=== PATIENT | female | born 1955 | race Hispanic/Latino ===

== ENCOUNTER → 2024-01-22 | Emergency (ER) | payer OTHER ==
[~2024-01-22] MED LIST: KETOROLAC 30 MG/ML INJ ONE; NA CHLORIDE 0.9% 1,000 ML ONE; TAMSULOSIN 0.4 MG SR CAP ONE
--- OUTSIDE RECORDS SUMMARY | 2024-01-22 21:38 | XMS REPORT | Continuity of Care Document ---
Author Name Unknown Address [address] [place] [address] thconnect Address [address] [place] [address] [address] [place] [address] Care Team Providers Care Chief Inspector Name Role Phone [email or web address]_S Attending Clinician Unavaila ble [email or web address]_S Admitting Clinician Unavaila ble Payers Payer Name Policy Type Policy Number Effective Date Expirati on Date Source [facility] (MEDICARE REPLACEMENT HMO) [id number] Encounters Start Date/Time End Date/Time Encounter Type Admission Type Attending Clinicians Care Facility Care Department Encounter ID Source 2024-01-13 00:00:00 2024-01-13 00:00:00 Outpatient [email or web address]_Ka diyala_S PRIV PRIV [id number] [facility] 2023-09-25 00:00:00 2023-09-25 00:00:00 Outpatient [email or web address] diyala_S PRIV PRIV [id number] [facility]
[2024-01-22 22:16] LABS: Absolute Lymphocytes (CBC) 2.3 K/uL (0.7-4.9); Hematocrit 42.9 % (36.0-45.0); Lymphocytes % 26.7 % (15.3-44.8); MCV 87.7 fL (80-100); MPV 9.2 fL (7.6-11.3); Platelets 258 thou/uL (152-406); RBC Red Blood Cell Count 4.89 M/uL (3.86-4.86)
[2024-01-22 22:22] LABS: Specific Gravity > 1.030 (1.005-1.030); Urine Bacteria <20 /HPF (<20); Urine Bilirubin NEGATIVE (Negative); Urine Blood Trace (Negative); Urine Clarity Clear (Clear); Urine Color Light-Yellow (Yellow); Urine Glucose 4+ (Over) (Negative); Urine Mucus Slight /HPF (None Seen); Urine Protein NEGATIVE (Negative); Urine Urobilinogen Normal (Normal); Urine pH 5.5 (5.0-7.0)
[2024-01-22 22:40] LABS: Albumin 3.8 g/dL (3.4-5.0); Bilirubin Total 0.3 mg/dL (0.2-1.0); Potassium 3.8 mEq/L (3.5-5.1); Protein, Total 7.1 g/dL (6.4-8.2)
--- NOTE | 2024-01-22 23:48 | ER ---
Nurse's Notes [facility] Name: Vee Coker Age: 68 yrs Sex: Female : 1955 Arrival Date: 01/22/2024 Time: 21:36 Bed 6 Private MD: Diagnosis: Calculus of kidney with calculus of ureter Presentation: 01/22 21:43 Chief complaint: Patient states: severe lower abdominal pain, felt like contractions or vc1 spasms. Ebola Screen: Patient negative for fever greater than or equal to 101.5 degrees Fahrenheit, and additional compatible Ebola Virus Disease symptoms Patient denies exposure to infectious person. Patient denies travel to an Ebola-affected area in the 21 days before illness onset. No symptoms or risks identified at this time. Risk Assessment: Do you want to hurt yourself or someone else? Patient reports no desire to harm self or others. Onset of symptoms is unknown. 21:43 Method Of Arrival: Ambulatory vc1 21:43 Acuity: JEROME 3 vc1 21:48 Coronavirus screen: Vaccine status: Patient reports receiving the 2nd dose of the covid vc1 vaccine. At this time, the client does not indicate any symptoms associated with coronavirus-19. Initial Sepsis Screen: Does the patient meet any 2 criteria? No. Patient's initial sepsis screen is negative. Does the patient have a suspected source of infection? No. Patient's initial sepsis screen is negative. Triage Assessment: 21:47 General: Appears in no apparent distress. uncomfortable, Behavior is calm, cooperative, vc1 appropriate for age. Pain: Denies pain. EENT: No deficits noted. No signs and/or symptoms were reported regarding the EENT system. Neuro: Level of Consciousness is awake, alert, obeys commands, Oriented to person, place, time, situation, Appropriate for age. Cardiovascular: No deficits noted. Respiratory: Airway is patent Respiratory effort is even, unlabored, Respiratory pattern is regular, symmetrical. GI: Abdomen is round non-distended, Reports severe left lower abdominal pain that has resolved. Patient currently denies diarrhea, vomiting. : No deficits noted. No signs and/or symptoms were reported regarding the genitourinary system. Derm: No deficits noted. No signs and/or symptoms reported regarding the dermatologic system. Musculoskeletal: No deficits noted. No signs and/or symptoms reported regarding the musculoskeletal system. Historical: - Allergies: 21:51 Codeine (Vomiting); vc1 21:51 PENICILLINS (Anaphylaxis, Hives); vc1 - PMHx: 21:44 Diabetes mellitus; vc1 21:51 Hypercholesterolemia; Hypertensive disorder; high intraoccular pressure; vc1 - PSHx: 21:51 None; vc1 - Immunization history:: Client reports receiving the 2nd dose of the Covid vaccine. - Social history:: Smoking status: Patient denies any tobacco usage or history of. Screenin:53 [facility] ED Fall Risk Assessment (Adult) History of falling in the last 3 months, vc1 including since admission No falls in past 3 months (0 pts) Confusion or Disorientation No (0 pts) Intoxicated or Sedated No (0 pts) Impaired Gait No (0 pts) Mobility Assist Device Used No (0 pt) Altered Elimination No (0 pt) Score/Fall Risk Level 0 - 2 = Low Risk Oriented to surroundings, Maintained a safe environment, Educated pt \T\ family on fall prevention, incl call for assistance when getting out of bed. Abuse screen: Denies threats or abuse. Nutritional screening: No deficits noted. Tuberculosis screening: No symptoms or risk factors identified. Assessment: 22:00 Reassessment: SEE TRIAGE NOTE. bp 22:30 GI: Bowel sounds present X 4 quads. Abd is soft and non tender X 4 quads. tm6 00:23 Reassessment: Patient appears in no apparent distress at this time. Patient and/or tm6 family updated on plan of care and expected duration. Pain level reassessed. Patient is alert, oriented x 3, equal unlabored respirations, skin warm/dry/pink. Patient states feeling better. Vital Signs: 01/22 21:48 BP 138 / 73; Pulse 76; Resp 14; Temp 97.3; Pulse Ox 99% ; Weight 68.04 kg; Height 5 ft. vc1 5 in. ; Pain 0/10; 22:48 BP 177 / 78; Pulse 74; Resp 16; Pulse Ox 99% ; bp 00:23 BP 154 / 64; Pulse 79; Resp 18; Temp 97.3(TE); Pulse Ox 99% on R/A; Pain 0/10; tm6 01/22 21:48 Body Mass Index 24.96 (68.04 kg, 165.1 cm) vc1 01/22 21:48 Pain Scale: Adult vc1 00:23 Pain Scale: Adult tm6 ED Course: 01/22 21:40 Patient arrived in ED. jj6 21:41 Monet Gleason [facility]-C [facility] kb 21:42 Brian Kirby MD is Attending Physician. kb 21:44 Triage completed. vc1 21:46 Arm band placed on right wrist. vc1 22:00 Inserted saline lock: 20 gauge in right antecubital area, using aseptic technique. bp Blood collected. 22:32 Leonel Ervin, RN is Primary Nurse. bp 22:49 Patient has correct armband on for positive identification. bp 22:[address] via wheelchair. nj 23:02 CT completed. Patient tolerated procedure well. nj 23:06 Patient moved back from CT. nj 23:09 CT Abd/Pelvis - IV Contrast Only In Process Unspecified. EDMS 00:23 No provider procedures requiring assistance completed. IV discontinued, intact, tm6 bleeding controlled, No redness/swelling at site. Pressure dressing applied. 00:24 Provided Education on: medication usage. tm6 Administered Medications: 01/22 22:45 Drug: NS 0.9% IV 1000 ml IV at 1000 ml once Route: IV; Rate: 1000 ml; Site: right bp antecubital; 00:25 Follow up: Response: No adverse reaction; IV Status: Completed infusion; IV Intake: tm6 1000ml 01/22 23:57 Drug: Flomax PO 0.4 mg PO once Route: PO; bp 23:57 Drug: Ketorolac IVP 15 mg IVP once Route: IVP; Site: right antecubital; bp Medication: 00:24 VIS not applicable for this client. tm6 Intake: 00:25 IV: 1000ml; Total: 1000ml. tm6 Outcome: 01/22 23:47 Discharge ordered by . kb 00:24 Discharged to home ambulatory, with family, tm6 Condition: stable Discharge instructions given to patient, family, Instructed on discharge instructions, follow up and referral plans. medication usage, Demonstrated understanding of instructions, follow-up care, medications, Prescriptions given X 3, 00:24 Patient left the ED. tm6 Signatures: Dispatcher [employer] EDCA Monet Gleason FNP-C VALIDATION MANAGER-CkCharbel Lopez Brian, GINA RN bp Tyesha Singh jj6 Karley Rico RN RN vc1 Fátima Argueta RN RN tm6 Corrections: (The following items were deleted from the chart) 01/22 21:52 21:44 Allergies: No Known Allergies; [place] [id number] 23:08 Patient moved to [facility] 23:08 CT completed. Patient tolerated procedure well [facility] 23:08 Patient moved back from [place]. [facility]
--- NOTE | 2024-01-22 23:48 | EDPHYS ---
Physician Documentation [facility] Name: Vee Coker Age: 68 yrs Sex: Female : 1955 Arrival Date: 01/22/2024 Time: 21:36 Bed 6 Private MD: ED Physician Brian Kirby HPI: 01/22 22:50 This 68 yrs old Female presents to ER via Ambulatory with complaints of kb Abdominal Pain. 22:50 Patient is a 68-year-old female who presents for left lower quadrant pain that started kb at 730 this evening. States she had similar pain on December 26 and mild pain intermittent throughout the month. States she has been seen by her phlebotomist supervisor/instructor and was told it could be a medication that she had been put on so that was stopped but the pain came back tonight so she came to have it evaluated. States the pain did resolve on the walk from the car to the ER.. Historical: - Allergies: 21:51 Codeine (Vomiting); vc1 21:51 PENICILLINS (Anaphylaxis, Hives); vc1 - PMHx: 21:44 Diabetes mellitus; vc1 21:51 Hypercholesterolemia; Hypertensive disorder; high intraoccular pressure; vc1 - PSHx: 21:51 None; vc1 - Immunization history:: Client reports receiving the 2nd dose of the Covid vaccine. - Social history:: Smoking status: Patient denies any tobacco usage or history of. ROS: 22:51 Constitutional: Negative for fever, chills, and weight loss, kb 22:51 Abdomen/GI: Positive for diarrhea, Negative for abdominal pain, nausea and vomiting, 22:51 All other systems are negative, Exam: 22:51 Constitutional: This is a well developed, well nourished patient who is awake, alert, kb and in no acute distress. Head/Face: Normocephalic, atraumatic. ENT: Moist Mucous membranes Cardiovascular: Regular rate Respiratory: Respirations even and unlabored. No increased work of breathing. Talking in full sentences Abdomen/GI: Soft, non-tender. No distention Skin: Warm, dry with normal turgor. Normal color. MS/ Extremity: Pulses equal, no cyanosis. Neurovascular intact. Full, normal range of motion. Neuro: Awake and alert, GCS 15, oriented to person, place, time, and situation. Moves all extremities. Normal gait. Vital Signs: 21:48 BP 138 / 73; Pulse 76; Resp 14; Temp 97.3; Pulse Ox 99% ; Weight 68.04 kg; Height 5 ft. vc1 5 in. ; Pain 0/10; 22:48 BP 177 / 78; Pulse 74; Resp 16; Pulse Ox 99% ; bp 00:23 BP 154 / 64; Pulse 79; Resp 18; Temp 97.3(TE); Pulse Ox 99% on R/A; Pain 0/10; tm6 01/22 21:48 Body Mass Index 24.96 (68.04 kg, 165.1 cm) vc1 01/22 21:48 Pain Scale: Adult vc1 00:23 Pain Scale: Adult tm6 MDM: 01/22 21:42 Patient medically screened. kb 22:52 Differential diagnosis: diverticulitis, non-specific abd pain, urinary tract infection. kb Data reviewed: vital signs, nurses notes. 23:46 Counseling: I had a detailed discussion with the patient and/or guardian regarding the kb historical points, exam findings, and any diagnostic results supporting the discharge/admit diagnosis, lab results, radiology results, the need for outpatient follow up, a urologist, to return to the emergency department if symptoms worsen or persist or if there are any questions or concerns that arise at home. 01/22 21:50 Order name: CBC with Diff; Complete Time: 22:22 kb 01/22 21:50 Order name: CMP; Complete Time: 22:49 kb 01/22 21:50 Order name: Lipase; Complete Time: 22:49 kb 01/22 21:50 Order name: Urinalysis w/ reflexes; Complete Time: 22:30 kb 01/22 22:28 Order name: Urine Culture EDVT 01/22 21:50 Order name: CT Abd/Pelvis - IV Contrast Only kb 01/22 21:50 Order name: IV Saline Lock; Complete Time: 22:30 kb 01/22 21:50 Order name: Labs collected and sent; Complete Time: 22:29 kb Administered Medications: 22:45 Drug: NS 0.9% IV 1000 ml IV at 1000 ml once Route: IV; Rate: 1000 ml; Site: right bp antecubital; 00:25 Follow up: Response: No adverse reaction; IV Status: Completed infusion; IV Intake: tm6 1000ml 01/22 23:57 Drug: Flomax PO 0.4 mg PO once Route: PO; bp 23:57 Drug: Ketorolac IVP 15 mg IVP once Route: IVP; Site: right antecubital; bp Disposition: 23:55 Co-signature as Attending Physician, Brian Kirby MD I agree with the assessment sp4 and plan of care. I reviewed the patient's care provided by the Advanced Practice Provider and agree with the diagnosis and treatment plan. Disposition Summary: 01/22/24 23:47 Discharge Ordered Notes: Location: Home kb Condition: Stable kb Diagnosis - Calculus of kidney with calculus of ureter kb Followup: kb - With: Emergency Department - When: As needed - Reason: Worsening of condition Followup: kb - With: Private Physician - When: 2 - 3 days - Reason: Recheck today's complaints, Continuance of care, Re-evaluation by your physician Discharge Instructions: - Discharge Summary Sheet kb - Kidney Stones, [id number] kb - Dietary Guidelines to Help Prevent Kidney Stones kb Forms: - Medication Reconciliation Form kb - Thank You Letter kb - Antibiotic Education kb - Prescription Opioid Use kb - Patient Portal Instructions kb - Leadership Thank You Letter kb Prescriptions: - Flomax 0.4 mg Oral capsule - take 1 capsule ORAL route once daily; 10 capsule; Refills: 0, Product Selection kb Permitted - Diclofenac Sodium 75 mg Oral tablet, delayed release (enteric coated) - take 1 tablet ORAL route 2 times per day As needed; 30 tablet; Refills: 0, kb Product Selection Permitted - Macrobid 100 mg Oral Capsule - take 1 capsule ORAL route every 12 hours for 7 days; 14 capsule; Refills: 0, kb Product Selection Permitted Signatures: Dispatcher [employer] EDVT Monet Gleason, GIOVANIC Leonel Woo RN RN bp Karley Rico RN RN 1 Brian Kirby MD MD sp4 Fátima Argueta RN tm6 Corrections: (The following items were deleted from the chart) 21:52 21:44 Allergies: No Known Allergies; vc1 vc1
[2024-01-23 00:53] VITALS: BP 154/64; TEMP 97.3; O2SAT 99
--- NOTE | 2024-01-23 12:00 | RAD REPORT ---
EXAM DESCRIPTION: CT - Abdomen Pelvis W Contrast - 01/23/2024 6:31 am CLINICAL HISTORY: LOWER ABD PAIN. COMPARISON: None. TECHNIQUE: CT of the abdomen and pelvis was performed following intravenous administration of iodina royce contrast. Oral contrast was not administered. Axial, coronal, and sagittal soft tissue window rec onstructions were created and sent to PACS. This exam was performed according to our departmental dose-optimization program, which includes autom ated exposure control, adjustment of the mA and/or kV according to patient size and/or use of iterati ve reconstruction technique. FINDINGS: Thoracic: No significant abnormality. Hepatobiliary: No concerning hepatic lesion identified. The portal veins are patent. The gallbladder is unremarkable. No biliary ductal dilatation. Pancreas: Unremarkable. Spleen: Unremarkable. Gastrointestinal: No evidence of bowel obstruction or perienteric inflammation. The appendix is nonvi sualized. Small stool burden. Adrenals: No abnormality identified in either adrenal gland. Renal: There is a calculus in the mid left ureter which measures 0.5 cm. There is mild left-sided hyd roureteronephrosis and mild left perinephric fat stranding. There is also mild prominence of the left ureter distal to the calculus. No definite renal calculi are visualized bilaterally. No hydronephros is on the right. No concerning parenchymal abnormality in either kidney. No hydronephrosis or urolith iasis. Bladder/Reproductive: Unremarkable appearance of the urinary bladder by CT technique. Vascular/Lymphatics: No lymphadenopathy identified by CT size criteria. Abdominal aorta is normal in caliber. Moderate calcific atherosclerosis. Musculoskeletal: No concerning osseous lesion identified. Fluid / peritoneum: No significant free fluid. No free intraperitoneal air identified. IMPRESSION Mid left ureteral calculus with mild left hydronephrosis. Electronically signed by: Pema Lion MD 01/22/2024 11:17 PM DIGITAL MANAGER Due to temporary technical issues with the PACS/Fluency reporting system, reports are being signed by the in house radiologist without review as a courtesy to ensure prompt reporting. The interpreting r adiologist is fully responsible for the content of the report.
== END ==
LOC: ER 21:36
DX: N20.2 Calculus of kidney with calculus of ureter (principal); E11.9 Type 2 diabetes mellitus without complications; I10 Essential (primary) hypertension; Z88.0 Allergy status to penicillin; Z88.5 Allergy status to narcotic agent
CPT/HCPCS: 87088; 85025; 81001; 87086; 36415; 83690; 80053; 74177; Q9967; J7030

== ENCOUNTER 2024-03-17 06:16 | Day surgery (SDC) | payer OTHER ==
[2024-03-17] MEDS: NA CHLORIDE 0.9% 1,000 ML ONE (06:50)
[2024-03-17] MEDS ORDERED: propofoL 200 MG/20 ML VIAL IV ONE (07:13)
[2024-03-17] MEDS ORDERED: ONDANSETRON 4 MG/2 ML VIAL ONE (07:13)
[2024-03-17] MEDS ORDERED: FENTANYL CITR 100 MCG/2 ML ONE (07:14)
[2024-03-17] MEDS ORDERED: MIDAZOLAM HCL 2 MG/2 ML INJ ONE (07:14)
[2024-03-17] MEDS: CEFAZOLIN SODIUM 1 GM/VIAL ONE (07:23)
[2024-03-17] MEDS ORDERED: LIDOCAINE 2% MPF 5 ML VIAL ONE (07:26)
[2024-03-17] MEDS ORDERED: SUCCINYLCHOLINE 20 MG/ML (10 ML) IV ONE (07:26)
[2024-03-17] MEDS ORDERED: CODEINE 30MG/APAP 300MG TAB PO PRN (07:43)
[2024-03-17] MEDS ORDERED: PHENAZOPYRIDINE 100MG TAB PO ONE (09:21)
[2024-03-17] MEDS ORDERED: TRAMADOL 37.5mg/APAP 325mg PER TAB ONE (09:26)
[2024-03-17] MEDS: TRAMADOL 37.5mg/APAP 325mg PER TAB PO ONE (09:30)
[2024-03-17] MEDS: PHENAZOPYRIDINE 100MG TAB PO ONE (09:30)
[2024-03-17 11:49] VITALS: BP 148/70; TEMP 97; O2SAT 98
--- NOTE | 2024-03-17 15:20 | RAD REPORT ---
EXAM DESCRIPTION: RAD - Urethrocystogrphy Retrograde - 03/17/2024 2:34 pm CLINICAL HISTORY: ICD N 20.0 FINDINGS: 15 fluoroscopic spot images obtained. Fluoroscopy time 1.3 minutes Left ureter was cannulated and contrast administered. Subsequently an ureteral stent was placed. Exam ination was performed by Dr Calhoun
--- NOTE | 2024-03-17 16:11 | OP ---
Surgeon: ROBIN MENDEZ Preoperative Diagnoses: 1.Left ureterolithiasis. 2.Left flank pain. Postoperative Diagnoses: 1.Left ureterolithiasis. 2.Left flank pain. 3.High-grade obstruction at junction L4-L5. Principal Procedures: 1.Cystoscopy. 2.Left retrograde pyelography. 3.Complex left ureteral stent placement. Indication For Procedure: The patient was seen in the outpatient urology clinic last week with sever e left flank pain associated with a 5 mm mid distal ureteral calculus causing hydronephrosis. Becaus e of the severity of her pain, she was recommended for operative intervention and presents today for that. Procedure In Detail: The patient was consented in the preoperative holding area before being transfe rred to the operative suite where general anesthesia was induced. She was given Ancef as IV antimicr obial prophylaxis, and pneumo boots were provided for DVT prophylaxis. She was placed in the lithoto my position, padded and secured to the table appropriately, and her genitalia were prepped with Hibic lens before being draped in a standard fashion. The case was begun using a 22-[place] rigid cystoscop e to traverse the urethra and into the bladder. The bladder was decompressed of urine and then refil led with sterile saline and surveyed. There was evidence of some mild cystitis present throughout. The ureteral orifices were orthotopic in location and no papillary mucosal lesions, foreign bodies, o r stones were noted, otherwise. As a result, I cannulated the left ureteral orifice with a 5-Central African ureteral access catheter and performed a retrograde pyelogram. Left retrograde pyelography: Using a 70:30 mixture of Omnipaque and saline, contrast was injected vi a the lumen of the 5-Central African ureteral access catheter and did propagate into the mid distal ureter whe re it reached a point of termination and would not go any further. I thus advanced the 5-Central African uret eral access catheter further into the mid distal ureter near the point of obstruction and again injec royce full-strength contrast. At this time, with the contrast went beyond the point of obstruction and into the proximal ureter where there was significant ureteronephrosis, before it entered the renal p nasrin and calyces, which were sharp at this point without signs of pelvocaliectasis. I thus attempte d to pass a Sensor wire via the 5-Central African ureteral access catheter, but it would coil beneath the poin t of obstruction observed in the mid distal ureter at the junction of the body of L4 and L5. As a re sult, after multiple attempts with a Sensor wire, I switched to a glidewire which again would simply coil beneath the stone. I continued with the glidewire for a couple of additional attempts before fi stephenie I was able to get the wire to navigate beyond the point of obstruction and enter the proximal u reter and ultimately the renal pelvis and upper pole calyx as evidenced fluoroscopically. Over the w emiliana, I was then able to pass a 5-Central African ureteral access catheter with some resistance into the proxim al ureter. I then exchanged the glidewire for the Sensor wire and after leaving the 5-Central African cathete r in place for a few minutes to allow the ureter to hopefully dilate a bit, I then removed the 5-Fren ch ureteral access catheter and then placed a 4.8-Central African x 26 cm double-J ureteral stent over the Sen sor wire into the collecting system, coiling it within the upper pole with a coil formed cystoscopica lly visible within the bladder. I then decompressed her bladder of fluid and urine before removing t he cystoscope and took the patient out of the lithotomy position. She was then awakened from general anesthesia, transferred to a stretcher, and then transferred to the recovery room in good condition. Complications: None. Discharge Disposition: She will require at least a couple of weeks of ureteral dilation with this 4. 5-Central African stent before we will plan to return for definitive operative management of her obstructive u reterolithiasis. Given the degree of obstruction seen, she will be counseled that she may be at a higher risk of ureteral stricture formation. NOAH/JOSEL Voice ID: [id number] Report ID: [id number]
== END 2024-03-17 10:13 | disposition home or self-care (01) ==
LOC: OR 06:16
PROVIDERS: ATTEND Urology
PROC: 0T778DZ Dilation of Left Ureter with Intraluminal Device, Via Natural or Artificial Opening Endoscopic (ICD-10-PCS; principal; 2024-03-17 07:30)
DX: N20.1 Calculus of ureter (principal); R10.9 Unspecified abdominal pain
CPT/HCPCS: 93005; 87088; 87086; 82947 ×2; 74450; 51610; 52332; J2704; J2001; J2250; J3010; J2405; J7030; J0690

== ENCOUNTER 2024-05-05 10:23 | Day surgery (SDC) | payer OTHER ==
--- NOTE | 2024-04-23 13:10 | RAD REPORT ---
EXAM DESCRIPTION: RAD - Chest Pa And Lat (2 Views) - 04/23/2024 1:04 pm CLINICAL HISTORY: Pre op pending surgery Chest pain. COMPARISON: <Comparisons> FINDINGS: The lungs are clear. The heart is normal in size. No displaced fractures. IMPRESSION: No acute or concerning finding suspected.
[2024-04-23 13:51] LABS: Absolute Basophils 0.1 K/uL (0-0.5); Absolute Eosinophils 0.3 K/uL (0-0.5); Absolute Lymphocytes (CBC) 1.7 K/uL (0.7-4.9); Absolute Monocytes 0.5 K/uL (0.1-1.3); Absolute Neutrophil 5.1 K/uL (1.8-8.0); Basophils % 0.8 % (0-1.3); Eosinophils % 4.2 % (0-4.4); Hematocrit 41.7 % (36.0-45.0); Hemoglobin 13.4 g/dL (12.0-15.0); Lymphocytes % 21.9 % (15.3-44.8); MCH 28.5 pg (27.0-35.0); MCHC 32.1 g/dL (32.0-36.0); MCV 88.5 fL (80-100); MPV 9.1 fL (7.6-11.3); Monocytes % 6.9 % (3.3-12.3); Neutrophils % 66.2 % (41.7-73.7); Platelets 351 thou/uL (152-406); RBC Red Blood Cell Count 4.71 M/uL (3.86-4.86); Red Cell Distribution Width 15.1 % (12.1-15.2)
[2024-04-23 13:52] LABS: PT Prothrombin Time 11.3 SECONDS (9.5-12.5); Protime INR 1.03
[2024-04-23 14:05] LABS: Anion Gap 5.8 mEq/L (5.0-15.0); Potassium 4.8 mEq/L (3.5-5.1)
[2024-05-05] MEDS: NA CHLORIDE 0.9% 1,000 ML ONE (10:58)
[2024-05-05] MEDS ORDERED: ONDANSETRON 4 MG/2 ML VIAL ONE (15:09)
[2024-05-05] MEDS ORDERED: propofoL 200 MG/20 ML VIAL IV ONE (15:09)
[2024-05-05] MEDS ORDERED: LIDOCAINE 1% MPF 5 ML VIAL ONE (15:09)
[2024-05-05] MEDS ORDERED: dexAMETHasone 10 MG/ML VIAL ONE (15:09)
[2024-05-05] MEDS ORDERED: MIDAZOLAM HCL 2 MG/2 ML INJ ONE (15:10)
[2024-05-05] MEDS ORDERED: FENTANYL CITR 100 MCG/2 ML ONE (15:10)
[2024-05-05] MEDS: CEFAZOLIN SODIUM 1 GM/VIAL ONE (15:50)
[2024-05-05] MEDS ORDERED: LABETALOL 20 MG/4ML SYRINGE IV ONE (16:31)
[2024-05-05] MEDS: TRAMADOL 37.5mg/APAP 325mg PER TAB ONE (17:48)
[2024-05-05] MEDS ORDERED: PHENAZOPYRIDINE 100MG TAB PO ONE (18:23)
[2024-05-05] MEDS: PHENAZOPYRIDINE 100MG TAB PO ONE (18:25)
[2024-05-05 18:40] VITALS: BP 149/63; TEMP 98.7; O2SAT 96
--- NOTE | 2024-05-05 20:47 | RAD REPORT ---
EXAM DESCRIPTION: RAD - Urethrocystogrphy Retrograde - 05/05/2024 4:53 pm CLINICAL HISTORY: LASER/ LEFT STENT EXCHANGE COMPARISON: None available. FINDINGS: Twelve Images were sent to PACS, documenting fluoroscopy use during left stent exchange pr marlon. No radiologist was available for the procedure, nor will any image interpretation he provide d. Please refer to the procedural report for additional details. Fluoroscopy time: 17 seconds. IMPRESSION: Documentation of fluoroscopy utilization as above.
--- NOTE | 2024-05-06 02:38 | OP ---
Surgeon: ROBIN MENDEZ Preoperative Diagnoses: 1.Left obstructive ureterolithiasis. 2.Stent discomfort. Postoperative Diagnoses: 1.Left obstructive ureterolithiasis. 2.Stent discomfort. 3.Calcified ureteral stricture disease at the junction of L4 L5/superior body of L5. Principal Procedures: 1.Cystoscopy. 2.Left retrograde pyelography. 3.Left ureteroscopy with laser lithotripsy. 4.Left ureteroscopic laser incision of calcified ureteral stricture. 5.Left ureteral dilatation. 6.Left 8-Eritrean ureteral stent placement. Indication For Procedure: Ms. Coker presented via the emergency department with severe flank pain a ssociated with a calcification noted within the mid distal ureter on the left. She underwent complic ated left ureteral stent placement requiring use of a 4.8-Eritrean stent due to the inability to pass a nything larger, and this was done with great difficulty. She presents today for definitive investiga tion and management of the calcification seen on CT. Of note, I reviewed the images of the CT and th e calcification seen, had a stippled appearance, atypical for a ureteral calculus. Procedure In Detail: The patient was consented in the preoperative holding area before being transfe rred to the operative suite where general anesthesia was induced. She was given Ancef 2 g IV antimic robial prophylaxis, and pneumo boots were provided for DVT prophylaxis. She was placed in the lithot meliton position, padded and secured to the table appropriately. Her genitalia were prepped with Hibicle ns and she was draped in standard fashion. The case was begun using a 22-Eritrean rigid cystoscope to traverse the urethra and into the bladder with ease. The bladder was decompressed of fluid and urine , and the ureteral stent was noted emanating from the left ureteral orifice. Using an alligator gras per, the tip of the stent was grasped and delivered to the meatus leaving the proximal end of the lucien nt within the proximal ureter/renal pelvis. I then passed a Sensor wire via the stent coiling it wit hin the putative upper pole calyx of the left kidney. Over the Sensor wire, I removed the stent and placed a dual-lumen catheter into the mid distal ureter. I then performed a retrograde study. Left retrograde pyelography: Using a 70:30 mixture of Omnipaque and saline, I injected the contrast via the second lumen of the dual-lumen catheter and it did propagate from the tip of the dual-lumen c atheter to a point of obstruction observed at the junction of the body of L4-L5 or the superior body of L5. The ureter was somewhat dilated above this junction as well as below this junction, contraste d into the renal pelvis and calyces with a degree of mild hydronephrosis. As a result, I removed the dual-lumen catheter leaving the Sensor wire in place and performed direct vision ureteroscopy. The ureteroscope was passed via her urethra into her bladder and into the ureteral orifice, traversin g the distal into the mid ureter to the point of obstruction observed fluoroscopically at the junctio n of the body of L4-5 where a calcified area of stricture disease was noted. It did appear that pote ntially a stone had embedded and was beneath the mucosa which had healed on top of the stone. This S ensor wire was going right through the center of the calcified area of stricture disease. As a resul t, I advanced the scope to this point of obstruction and utilized a 365 nm laser fiber at a power set ting of 0.8 joules and 15 hertz initially to begin to fragment some of the stone material seen most s uperficially beneath the mucosa within the ureter. I then had to increase the power to 1 joule and u ltimately to 25 hertz to continue to fragment that stone material from beneath the mucosa. I also al ternated with 0.4 joules and 25 hertz ultimately to ensure all calcified material and fragments were removed from beneath the mucosa at that point in the ureter. Unfortunately, the calcified material w as noted involving about 4/5 of the lumen of the ureter with the only uninvolved segment being a port ion of the ureter between 11 p.m. and 1 a.m. As a result, there was clear stricture disease that had formed, I proceeded to incise the stricture a t this point laterally because we were above the pelvic brim. As I incised the stricture disease lat erally until periureteral fat was noted and then after this was successfully managed, I then advanced the ureteroscope beyond the point of stricture and obstruction into the proximal ureter and ensured no additional calculi were noted visualizing into the renal pelvis. At this point, I removed the ure teroscope and then passed the dual-lumen catheter over the safety wire and again performed a retrogra de pyelogram. Left retrograde pyelography: Using full-strength Omnipaque, I injected this via the second lumen of the dual-lumen catheter and did demonstrate complete patency of the ureter beyond the point of obstru ction with no significant narrowing or tapering of the ureter in that location. A slight degree of u reteral extravasation was observed as expected and desired. As a result, I advanced the 10-Eritrean du al-lumen catheter further beyond the point of obstruction into the renal pelvis to ensure it was dila royce at least a 10-Eritrean. I then switched the dual-lumen catheter for a 12 x 14-Eritrean ureteral acce ss sheath to further dilate the incised strictured area to at least 14-Eritrean. Once this was done, I then removed that ureteral access sheath and back-loaded the cystoscope over the safety wire. I the n passed an 8-Eritrean x 26 cm double-J ureteral stent over the wire successfully coiling it within the upper pole calyx of the left kidney with an additional wire cystoscopically formed in her bladder. I then decompressed the bladder of fluid and urine and collected some of the laser in size material f or pathologic analysis and chemical analysis. The patient was then taken out of the lithotomy positi on, awakened from general anesthesia, transferred to a stretcher, and then transferred to the recover y room in good condition. Complications: None. Discharge Disposition: She will be discharged with a 14-day prescription for Levaquin in addition to a once daily prophylactic Macrobid prescription, which I instructed her to start taking after she co mpletes the 14 days of the Levaquin. She will contact her yarn packer to confirm whether her gla ucoma is in the open angle or closed angle, and if it is open angle and she has significant stent dis comfort, we can prescribe oxybutynin to manage that. I also took some pictures which were shared with her , and I allowed him to use his cellphone to snap pictures off my cellphone which were taken intraoperatively because the camera equipment was not adequately recording video. He did this. I explained the pictures including what was normal-lucio earing ureter versus the calcified submucosal portion of the ureter versus the after effect with the incised area of ureteral stricture disease. The patient should keep the ureteral stent for at least 6 to 8 weeks before it is removed in the office cystoscopically. Subsequent followup will be establi shed in about 2 to 3 months thereafter for ultrasound to assess for obstruction suggestive of recurre nce of the left ureteral stricture disease. WR/MODL Voice ID: [id number] Report ID: [id number]
== END 2024-05-05 18:33 | disposition home or self-care (01) ==
LOC: OR 10:23
PROVIDERS: ATTEND Urology
PROC: 0T778DZ Dilation of Left Ureter with Intraluminal Device, Via Natural or Artificial Opening Endoscopic (ICD-10-PCS; 2024-05-05)
PROC: 0TF78ZZ Fragmentation in Left Ureter, Via Natural or Artificial Opening Endoscopic (ICD-10-PCS; principal; 2024-05-05 12:00)
DX: N20.1 Calculus of ureter (principal); T83.84XA Pain due to genitourinary prosthetic devices, implants and grafts, initial encounter; N13.5 Crossing vessel and stricture of ureter without hydronephrosis
CPT/HCPCS: 52356; 52344; 87088; 85025; 87086; 80048; 36415; 85610; 82947 ×3; 88300; 82360; 71046; 74450; 51610; J2704; J2001; J2250; J3010; J1100; J2405; J7030; J0690

== ENCOUNTER 2025-09-23 17:14 | Emergency (ER) | payer OTHER ==
[2025-09-23] MEDS ORDERED: TENECTEPLASE 50 MG/10 ML VIAL IV ONE (17:38)
[2025-09-23 17:42] LABS: Absolute Lymphocytes (CBC) 2.8 K/uL (0.7-4.9); Hematocrit 41.6 % (36.0-45.0); Hemoglobin 13.8 g/dL (12.0-15.0); MCH 29.0 pg (27.0-35.0); MCHC 33.3 g/dL (32.0-36.0); MCV 87.2 fL (80-100); MPV 9.9 fL (7.6-11.3); Nucleated RBC Absolute Count 0.0 (0-0); Nucleated Red Blood Cells % 0.0 % (0-0); RBC Red Blood Cell Count 4.77 M/uL (3.86-4.86); White Blood Count 10.60 thou/uL (4.3-10.9)
--- NOTE | 2025-09-23 17:48 | RAD REPORT ---
EXAM: CT brain without contrast HISTORY: STROKE ALERT COMPARISON: 06/24/2008 TECHNIQUE: Multiple contiguous axial images were obtained and a CT of the brain without contrast. Sag ittal and coronal reformats were performed. One or more of the following dose reduction techniques were used: Automated exposure control, adjust ment of the mA and/or kV according to patient size, and/or iterative reconstruction. FINDINGS: No evidence of hydrocephalus, intracranial hemorrhage, or extra-axial fluid collection. The brain is normal in morphology. No evidence of midline shift or areas of brain edema. The calvarium is intact. The visualized paranasal sinuses and mastoid air cells are essentially clear . IMPRESSION: No evidence of acute intracranial abnormality. The findings were communicated with Jeffy Suggs at 09/23/2025 5:45 PM by telephone.
[2025-09-23 17:51] LABS: PT Prothrombin Time 11.6 SECONDS (10-13.0); PTT, Activated Partial Thromb 30.0 SECONDS (27.2-37.4); Protime INR 1.03
--- NOTE | 2025-09-23 18:01 | ER ---
Nurse's Notes [facility] Name: Vee Coker Age: 70 yrs Sex: Female : 1955 Arrival Date: 09/23/2025 Time: 17:14 Bed 4 Private MD: Diagnosis: Syncope, right sided paralysis, probable ischemic stroke, intubation Presentation: 09/23 17:15 Method Of Arrival: EMS: [facility] bp 17:22 Chief complaint: EMS states: SYNCOPAL COLLAPSE AT PUMPKIN PATCH WITH DECREASED LOC AND bp AMS. Coronavirus screen: At this time, the client does not indicate any symptoms associated with coronavirus-19. Ebola Screen: No symptoms or risks identified at this time. Initial Sepsis Screen: Does the patient meet any 2 criteria? Altered Mental Status. No. Patient's initial sepsis screen is negative. Does the patient have a suspected source of infection? No. Patient's initial sepsis screen is negative. Risk Assessment: Do you want to hurt yourself or someone else? Unable to obtain. Note CODE STROKE CALLED. Onset of symptoms was September 23, 2025 at 16:50. Care prior to arrival: IV initiated. 18 GA, in the right forearm, Glucose check: 137. 17:29 Acuity: JEROME 1 db Triage Assessment: 17:22 General: Appears distressed, Behavior is unresponsive. bp 17:22 Pain: Unable to use pain scale. Patient is unresponsive. EENT: No deficits noted. bp Neuro: Level of Consciousness is obtunded, Oriented to none. Cardiovascular: Rhythm is sinus rhythm. Respiratory: Respiratory effort is weak. GI: No deficits noted. : No deficits noted. Derm: No deficits noted. Musculoskeletal: FLACCID R SIDE. Historical: - Allergies: 17:36 Codeine (Vomiting); bp 17:36 PENICILLINS (Anaphylaxis, Hives); bp - PMHx: 17:36 diabetes mellitus; high intraoccular pressure; Hypercholesterolemia; Hypertensive bp disorder; - Immunization history:: Adult Immunizations unknown. - Infectious Disease History:: Denies. - Social history:: Smoking status: unknown. Screenin:22 [facility] ED Fall Risk Assessment (Adult) History of falling in the last 3 months, bp including since admission Yes- physiologic fall (2 pts) Confusion or Disorientation Yes (5 pts) Intoxicated or Sedated Yes (3 pts) Impaired Gait Yes (1 pt) Mobility Assist Device Used No (0 pt) Altered Elimination No (0 pt) Score/Fall Risk Level 3 or more points = High Risk Oriented to surroundings, Maintained a safe environment. 17:22 Abuse screen: Denies threats or abuse. Denies injuries from another. Nutritional bp screening: No deficits noted. Tuberculosis screening: No symptoms or risk factors identified. Assessment: 17:25 Reassessment: 20 ETOMIDATE, 80 ROCURONIUIM IVP FOR INTUBATION. bp 17:27 Reassessment: PROPOFOL 60MG IVP FOR CT. bp 17:30 Reassessment: PT TO CT. bp 18:44 Reassessment: TRANSFER IN PROCESS. PT RETURNED FROM CTA. bp Vital Signs: 17:15 BP 168 / 94; Pulse 93; Resp 29; Temp 98; Pulse Ox 97% on 3 lpm NC; Weight 73 kg; bp 17:30 BP 182 / 106; Pulse 97; Resp 24; Pulse Ox 97% ; bp 17:45 BP 199 / 93; Pulse 103; Resp 24; Pulse Ox 100% ; bp 18:00 BP 177 / 87; Pulse 116; Resp 23; Pulse Ox 100% ; bp 18:15 BP 172 / 92; Pulse 81; Resp 16; Pulse Ox 100% ; bp 18:30 BP 168 / 90; Pulse 80; Resp 15; Pulse Ox 100% ; bp 18:45 BP 173 / 83; Pulse 74; Resp 12; Pulse Ox 100% ; bp 19:00 BP 171 / 84; Pulse 71; Resp 14 A; Pulse Ox 100% on ETT vent; vc1 ED Course: 17:22 Arm band placed on. bp 17:22 Patient has correct armband on for positive identification. bp 17:22 Assisted provider with intubation using 7.5 mm ETT via oral route. ET tube secured at bp 22cm at the lips. Set up intubation tray. Intubated by Seferino Brandon MD Placement verified by CO2 detector w/ + color change, auscultating bilateral breath sounds, Patient tolerated well. Initial lab(s) drawn, by ED staff, sent to lab. Maintain EMS IV. Dressing intact. Good blood return noted. Site clean \T\ dry. Gauge \T\ site: 20 RFA, 18 LFA. Flushed with 10 mL NS. 17:29 Patient arrived in ED. db 17:29 Triage completed. db 17:29 Seferino Brandon MD is Attending Physician. sp3 17:32 Leonel Ervin, RN is Primary Nurse. bp 17:40 CT Stroke Brain w/o Contrast In Process Unspecified. EDMS 17:57 transfer initiated with Navin at the [place] [facility]. bc6 18:15 Stroke CXR 1 View In Process Unspecified. EDMS 18:22 Reynolds cath inserted, using sterile technique, 16 Fr., by ar, balloon inflated, to db gravity drainage, urine specimen collected. 18:31 flight called for transfer. bc6 18:39 CT Head Angio In Process Unspecified. EDMS 18:39 CT Neck Angio In Process Unspecified. EDMS 18:41 transfer accepted to [facility] with Agus Arreguin. bc6 19:28 Provided Education on: transfer. cp4 19:28 Patient transferred, IV remains in place. cp4 Administered Medications: 17:25 Drug: Rocuronium IVP 80 mg IVP once Route: IVP; Site: right forearm; bp 17:56 Follow up: Response: No adverse reaction bp 17:25 Drug: Etomidate IVP 20 mg IVP once Route: IVP; Site: right forearm; bp 17:56 Follow up: Response: No adverse reaction bp 17:27 Drug: Propofol IVP 60 mg IVP once; Document RASS score. Route: IVP; Site: right forearm;bp 17:56 Follow up: Response: No adverse reaction bp 17:50 Drug: Propofol IV 5 mcg/kg/min IV at calculated rate See Administration Instructions; bp Standard concentration 1000 mg / 100 mL; Recommended max rate 50 mcg/kg/min; Titrate 5 mcg/kg/min every 5 minutes to achieve goal (see titration policy); Goal parameter RASS score 0 to -2 Route: IV; Rate: calculated rate; Site: left forearm; 19:30 Follow up: Response: No adverse reaction; IV Status: Infusion continued upon transfer cp4 17:55 Drug: TNK FOR STROKE - Tenecteplase IV (Administer 10 ml NS flush BEFORE and bp AFTER tenecteplase) 19 mg IV at per protocol once; 0.25mg/kg, MAX DOSE 25 mg, IVP over 5 seconds {Co-Signature: db (Dari Sawant RN).} Route: IV; Rate: per protocol; Site: left forearm; 18:45 Follow up: IV Status: Completed infusion bp Medication: 19:28 VIS not applicable for this client. cp4 Outcome: 18:01 ER care complete, transfer ordered by . sp3 19:28 Transferred by helicopter to [facility], Transfer form completed. X-rays sent cp4 w/ patient. 19:28 Condition: stable 19:28 Instructed on the need for transfer, 19:30 Patient left the ED. cp4 Addendum: 17:25 Addendum: Other 1725: Roberta swallow failed. Pt intubated upon arrival. k b3 17:25 Addendum: Other NIH 38. Limb ataxia and dysarthria not scored due to intubation. k b3 Signatures: Dispatcher [employer] EDMS Lauren Bell RN RN Leonel Gnuter RN RN Seferino Rocha MD MD sp3 Karley Rico RN RN vc1 Amy Willis RN RN kb3 Dari Sawant, RN RN db Heather Hernandez [facility] Val Reid 4 Dari Sawant RN db Corrections: (The following items were deleted from the chart) 17:49 17:15 BP 168 / 94; Pulse 93bpm; Resp 29bpm; Pulse Ox 97% 3 lpm Nasal Cannula; Temp 98F; bp bp 18:26 18:09 Pulse 88bpm; ss bp 18:26 18:09 BP 172 / 92; ss bp 18:32 17:57 transfer initiated with Navin at [facility] [place] [facility] [place] [address] 19:07 18:41 transfer accepted to [facility] [address] [place] [address]
--- NOTE | 2025-09-23 18:01 | EDPHYS ---
Physician Documentation [facility] Name: Vee Coker Age: 70 yrs Sex: Female : 1955 Arrival Date: 09/23/2025 Time: 17:14 Bed 4 Private MD: ED Physician Seferino Brandon HPI: 09/23 17:52 This 70 yrs old Female presents to ER via EMS with complaints of Unresponsive. sp3 17:52 70-year-old female with history of diabetes, hyperlipidemia, hypertension, glaucoma sp3 presents via EMS for chief complaint syncope/collapse and right-sided deficits and altered mental status. Patient was with family at local [facility] where she collapsed. EMS was activated who arrived to find patient with altered mental status, unable to speak, total flaccidity on the right side with weakness on the left. Blood sugar was normal and patient was transported emergently here. Upon arrival patient's airway was compromised and right sided flaccid exam was confirmed. Pupils were 4 mm equal bilaterally. Patient was unable to speak but did grunt. Mild purposeful movement on left upper extremity. Please see MDM for continued critical care notes, intubation note and further workup and action plan. ROS, history and physical limited secondary to patient being unresponsive, noncommunicative and then later on ventilator. All history from EMS and family who are now here at bedside.. Historical: - Allergies: 17:36 Codeine (Vomiting); bp 17:36 PENICILLINS (Anaphylaxis, Hives); bp - PMHx: 17:36 diabetes mellitus; high intraoccular pressure; Hypercholesterolemia; Hypertensive bp disorder; - Immunization history:: Adult Immunizations unknown. - Infectious Disease History:: Denies. - Social history:: Smoking status: unknown. ROS: 17:54 Unable to obtain ROS due to patient is on ventilator, sp3 Exam: 17:54 Neuro: Limited exam secondary to patient being on ventilator. Prior to intubation, sp3 patient had total flaccid response on the right side with minimal purposeful movements on the left side upper and lower extremities. Patient was unable to speak and grunted as she attempted. No significant facial changes were identified. Pupils were 4 mm equal bilaterally. Patient did have gag reflex. Abdomen was soft, heart and lung exams were normal. No obvious trauma, bleeding or rash., 17:54 Unable to obtain exam due to patient being intubated, 18:36 ECG was reviewed by the Attending Physician. EKG demonstrates normal sinus rhythm at 86 sp3 bpm with normal intervals, right bundle branch block and nonspecific diffuse ST/T changes without evidence of acute ischemia. Vital Signs: 17:15 BP 168 / 94; Pulse 93; Resp 29; Temp 98; Pulse Ox 97% on 3 lpm NC; Weight 73 kg; bp 17:30 BP 182 / 106; Pulse 97; Resp 24; Pulse Ox 97% ; bp 17:45 BP 199 / 93; Pulse 103; Resp 24; Pulse Ox 100% ; bp 18:00 BP 177 / 87; Pulse 116; Resp 23; Pulse Ox 100% ; bp 18:15 BP 172 / 92; Pulse 81; Resp 16; Pulse Ox 100% ; bp 18:30 BP 168 / 90; Pulse 80; Resp 15; Pulse Ox 100% ; bp 18:45 BP 173 / 83; Pulse 74; Resp 12; Pulse Ox 100% ; bp 19:00 BP 171 / 84; Pulse 71; Resp 14 A; Pulse Ox 100% on ETT vent; vc1 Procedures: 18:01 Intubation: Ventilated with 100% NRB prior to procedure. Intubated orally using # 4 sp3 Nathan blade with 7.5 mm ETT. was successful on first attempt. Ventilated with Ambu bag. ventilator. Cricoid pressure applied during procedure. Tube secured with ETT dawson Placement verified by CXR, CO2 detector with (+) color change, auscultating bilateral breath sounds, O2 saturation after procedure was 100 %. Patient tolerated well. MDM: 17:29 Medical Screening Exam initiated sp3 17:55 Data reviewed: vital signs, nurses notes, EMS record, lab test result(s), EKG, sp3 radiologic studies. ED course: Patient was quickly assessed in terms of neuroexam and immediately intubated for code stroke. 20 mg of etomidate and 80 mg of succinylcholine were administered followed by intubation by me using direct laryngoscopy using 4-0 Mac blade and 7.5 endotracheal tube successful on first attempt with CO2 color change, misting of the tube and direct visualization of tube going through the cords. Patient given 60 mg of propofol and immediately taken to CT scan where she had negative head CT. Patient was brought back to the ED and I had extensive conversation with family regarding TNKase and risks and benefits of utilizing that medication including bleeding side effects. It was confirmed the patient has not had any history of GI bleed, any neurosurgery, any recent surgeries, any coagulopathy, recent trauma or any other contraindications. It was decided to administer TNKase. 0.25 mg/kg at 73 kg yields 19 mg dose which has been ordered. Routine labs are pending including coagulation profile. Transfer has already been initiated to [facility] neurological ICU.. 18:28 ED course: Transfer was initiated to [facility] by staff. I discussed with sp3 neurology team there who has accepted the patient to neuro ICU at [facility]. They requested CT angiogram of brain and neck in case there is a large vessel occlusion. We will get that while we await their transfer. Family at bedside as well.. 09/23 17:30 Order name: Basic Metabolic Panel; Complete Time: 18:08 sp3 09/23 17:30 Order name: CBC with Diff; Complete Time: 17:50 sp3 09/23 17:30 Order name: Hepatic Function; Complete Time: 18:08 sp3 09/23 17:30 Order name: High Sensitivity Troponin; Complete Time: 18:08 sp3 09/23 17:30 Order name: Magnesium; Complete Time: 18:08 sp3 09/23 17:30 Order name: Protime (+inr); Complete Time: 18:06 sp3 09/23 17:30 Order name: Ptt, Activated; Complete Time: 18:06 sp3 09/23 17:31 Order name: ABG; Complete Time: 18:11 sp3 09/23 17:30 Order name: CT Head Angio; Complete Time: 18:57 sp3 09/23 17:30 Order name: CT Neck Angio; Complete Time: 18:57 sp3 09/23 17:30 Order name: CT Stroke Brain w/o Contrast; Complete Time: 17:50 sp3 09/23 17:30 Order name: Stroke CXR 1 View; Complete Time: 18:29 sp3 09/23 17:30 Order name: Accucheck; Complete Time: 17:50 sp3 09/23 17:30 Order name: Cardiac monitoring; Complete Time: 17:49 sp3 09/23 17:30 Order name: EKG - Nurse/Tech; Complete Time: 17:49 sp3 09/23 17:30 Order name: IV Saline Lock; Complete Time: 17:50 sp3 09/23 17:30 Order name: Labs collected and sent; Complete Time: 17:50 sp3 09/23 17:30 Order name: NPO; Complete Time: 17:50 sp3 09/23 17:30 Order name: O2 Per Protocol; Complete Time: 17:49 sp3 09/23 17:30 Order name: O2 Sat Monitoring; Complete Time: 17:49 sp3 09/23 17:30 Order name: Stroke Swallow Screen; Complete Time: 17:50 sp3 Administered Medications: 17:25 Drug: Rocuronium IVP 80 mg IVP once Route: IVP; Site: right forearm; bp 17:56 Follow up: Response: No adverse reaction bp 17:25 Drug: Etomidate IVP 20 mg IVP once Route: IVP; Site: right forearm; bp 17:56 Follow up: Response: No adverse reaction bp 17:27 Drug: Propofol IVP 60 mg IVP once; Document RASS score. Route: IVP; Site: right forearm;bp 17:56 Follow up: Response: No adverse reaction bp 17:50 Drug: Propofol IV 5 mcg/kg/min IV at calculated rate See Administration Instructions; bp Standard concentration 1000 mg / 100 mL; Recommended max rate 50 mcg/kg/min; Titrate 5 mcg/kg/min every 5 minutes to achieve goal (see titration policy); Goal parameter RASS score 0 to -2 Route: IV; Rate: calculated rate; Site: left forearm; 19:30 Follow up: Response: No adverse reaction; IV Status: Infusion continued upon transfer cp4 17:55 Drug: TNK FOR STROKE - Tenecteplase IV (Administer 10 ml NS flush BEFORE and bp AFTER tenecteplase) 19 mg IV at per protocol once; 0.25mg/kg, MAX DOSE 25 mg, IVP over 5 seconds {Co-Signature: db (Dari Sawant RN).} Route: IV; Rate: per protocol; Site: left forearm; 18:45 Follow up: IV Status: Completed infusion bp Disposition Summary: 09/23/25 18:01 Transfer Ordered Notes: Transfer Location: [facility] sp3 Reason: Higher level of care sp3 Condition: Fair sp3 Problem: new sp3 Symptoms: have worsened sp3 Accepting Physician: [facility] neuro ICU team(10/30/25 19:30) cp4 Diagnosis - Syncope, right sided paralysis, probable ischemic stroke, intubation sp3 Forms: - Medication Reconciliation Form sp3 - SBAR form sp3 Critical care time excluding procedures: 17:58 Critical care time: Bedside Care: 20 minutes, Consultation: 10 minutes, Family sp3 Intervention: 15 minutes. Total time: 45 minutes Signatures: Dispatcher [employer] EDMS Leonel Ervin, RN RN bp Seferino Brandon MD MD sp3 Val Reid cp4 Dari Sawant RN db Corrections: (The following items were deleted from the chart) 17:31 17:31 BASIC METABOLIC PANEL+C.LAB.BRZ ordered. EDMS EDMS 17:31 17:31 CBC+H.LAB.BRZ ordered. EDMS EDMS 17:31 17:31 HEPATIC FUNCTION+C.LAB.BRZ ordered. EDMS EDMS 17:31 17:31 Troponin High Sensitivity+C.LAB.BRZ ordered. EDMS EDMS 17:31 17:31 MAGNESIUM+C.LAB.BRZ ordered. EDMS EDMS 17:31 17:31 PROTIME (+INR)+COAG.LAB.BRZ ordered. EDMS EDMS 17:31 17:31 PTT, ACTIVATED+COAG.LAB.BRZ ordered. EDMS EDMS 17:31 17:31 Head Angio+CT.RAD.BRZ ordered. EDMS EDMS 17:31 17:31 Neck Angio+CT.RAD.BRZ ordered. EDMS EDMS 17:31 17:31 CT-STROKE BRAIN W/O CONTRAST+CT.RAD.BRZ ordered. EDMS EDMS 17:31 17:31 Chest Single View+RAD.RAD.BRZ ordered. EDMS EDMS 17:31 17:31 Arterial Blood Gas+RC.LAB.BRZ ordered. EDMS EDMS 19:30 18:01 [facility] neuro ICU team sp3 cp4
[2025-09-23 18:03] LABS: ALT/SGPT 23 U/L (13-56); Albumin 3.7 g/dL (3.4-5.0); Albumin/Globulin Ratio 1.0 (1.1-1.8); Alkaline Phosphatase 90 U/L (45-117); Anion Gap 11.7 mEq/L (5.0-15.0); BUN Blood Urea Nitrogen 16 mg/dL (7-18); Globulin 3.6 g/dL (2.3-3.5); Glucose Level 144 mg/dL (74-106); Troponin High Sensitivity 9.2 pg/mL (<58.9)
[2025-09-23 18:07] LABS: AST/SGOT 23 U/L (15-37); Bilirubin Indirect, Calculated 0.2 mg/dL (0.2-0.8); Magnesium 1.7 mg/dL (1.6-2.4); Potassium 4.7 mEq/L (3.5-5.1)
[2025-09-23 18:08] LABS: Arterial Blood Carboxyhemoglob 0.9 % (0.0-1.5); Blood Gas Inspired Oxygen 100.0 %; Blood Gas Oxyhemoglobin 97.4 % (94.0-97.0); Blood O2 Saturation 99.9 % (92.0-98.5)
--- NOTE | 2025-09-23 18:18 | RAD REPORT ---
EXAMINATION: ONE VIEW CHEST XR CLINICAL INDICATION: stroke TECHNIQUE: Frontal chest projection is submitted. Examination is limited by patient positioning and t echnique. COMPARISON: No prior exam. FINDINGS: Tip of the enteric tube is above the madeline at the level of the superior aortic arch. Mild interstiti al pulmonary edema is suspected. The heart is upper limit of normal in size. No displaced fractures identified.
--- NOTE | 2025-09-23 18:52 | RAD REPORT ---
EXAMINATION: CTA HEAD CLINICAL INDICATION: STROKE ALERT TECHNIQUE: Axial CT images were obtained through the head after intravenous contrast utilizing angiog raphic protocol with 3D post-processing (maximum intensity projection images, volume rendered images and/or shaded surface rendered images). One or more of the following dose reduction technique s were used: Automated exposure control, adjustment of the mA and/or kV according to patient size, and/or iterative reconstruction. Unless otherwise specified, incidental findings do not require dedic ated imaging follow-up. COMPARISON: No prior exam. FINDINGS: ICA: The petrous, cavernous, and supraclinoid segments of the bilateral internal carotid arteries are normal. The ophthalmic artery origins are visualized and normal. The posterior communicating arteries are patent. ERNESTINA: Anterior cerebral arteries are normal bilaterally. The anterior communicating artery is patent. MCA: Middle cerebral arteries are normal bilaterally. Small 3 mm contrast collection is seen distal l eft M1 segment suspicious for a small aneurysm. GRINDING OPERATOR: Posterior cerebral arteries are normal bilaterally. Vertebrobasilar: The vertebral arteries are patent. Right vertebral artery is highly diminutive. The basilar artery is normal in appearance. 3D images confirm these findings. 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 Highly diminutive right intracranial vertebral artery seen.
--- NOTE | 2025-09-23 18:54 | RAD REPORT ---
EXAMINATION: CTA NECK CLINICAL INDICATION: stroke TECHNIQUE: Axial CT images were obtained from the aortic arch to the skull base after intravenous con trast utilizing angiographic protocol with 3D post-processing (maximum intensity projection images, volume rendered images and/or shaded surface rendered images). One or more of the following dose redu ction techniques were used: Automated exposure control, adjustment of the mA and/or kV according to patient size, and/or iterative reconstruction. Unless otherwise specified, incidental findings do not require dedicated imaging follow-up. COMPARISON: No prior exam. FINDINGS: AORTA: The imaged aortic arch is normal. CCA: The common carotid arteries are patent and normal in caliber. ICA/ECA: Mild hard plaquing is seen in both carotid bulbs. This results in less than 50% stenosis ignacio aterally. VERTEBRAL: The cervical vertebral arteries are patent. Highly diminutive right vertebral artery. SOFT TISSUE: Endotracheal intubation noted with fluid in the nasopharynx. ET tube tip is above the ca sharmin. The visualized lung apices are clear. 3D images confirm these findings. IMPRESSION: Mild plaquing of both proximal internal carotid arteries resulting in stenosis less than 50%. NASCET criteria used. Mild 0-49% stenosis Moderate 50-69% stenosis Severe 70-99% stenosis
[2025-09-23 19:34] VITALS: TEMP 98
[2025-09-23 19:36] VITALS: O2SAT 100
[2025-09-23 19:42] VITALS: BP 171/84
== END 2025-09-23 19:30 | disposition short-term general hospital (02) ==
LOC: ER 17:14
DX: R55 Syncope and collapse (principal); G81.91 Hemiplegia, unspecified affecting right dominant side; R41.82 Altered mental status, unspecified; E11.9 Type 2 diabetes mellitus without complications; I10 Essential (primary) hypertension; E78.00 Pure hypercholesterolemia, unspecified
CPT/HCPCS: 96365; 92977; 93005; 85025; 80048; 36415; 83735; 85610; 80076; 85730; 84484; 70496; 70498; 70450; 71045; 31500; 51702; 96375; 99291; 82805; 36600; 94002; Q9967; J3101